=== PATIENT | female | born 1990 | race African-American/Black ===

== ENCOUNTER → 2021-02-24 | Outpatient (CLI) | payer BC ==
[~2021-02-24] MED LIST: IOHEXOL 240 MG/ML 50ML VIAL. ONE; IOHEXOL 300 MG/ML 75 ML VIAL. IV ONE
--- NOTE | 2021-02-24 13:39 | RAD ---
EXAM: Abdomen and pelvis CT with intravenous contrast. HISTORY: Left lower quadrant pain and rectal bleeding. TECHNIQUE: Computed tomographic images of the abdomen and pelvis were obtained following the administ ration of intravenous contrast. Multiplanar reformatting was performed. *One or more of the following individualized dose reduction techniques were utilized for this examina tion: 1. Automated exposure control. 2. Adjustment of the mA and/or kV according to patient size. 3. Use of iterative reconstruction technique. COMPARISON: None. FINDINGS: Evaluation of the lower thorax demonstrates basilar atelectasis and trace right greater emory n left pleural effusions.. There is no infiltrate. There is a patulous distal esophagus. There is fat ty infiltration of the liver along the falciform ligament. No suspicious hepatic lesion is seen. The gallbladder, pancreas, spleen and stomach are unremarkable. The adrenal glands are unremarkable. Ther e is a prominent bilateral renal collecting system without josey hydronephrosis. There is no appendicitis. There is no bowel obstruction. There is circumferential wall thickening and surrounding inflammatory stranding involving the colon from the splenic flexure to the rectum, the a ppearance of which favors acute colitis. There are multiple prominent pericolonic lymph nodes and mes enteric lymph nodes which may be reactive in etiology. No convincing colonic mass or rectal mass is s een. There is trace pelvic free fluid. There aren't heterogeneous masses involving the uterus, the largest of which is seen within the super ior uterine fundus containing calcifications and central areas of cystic change. This measures 15 cm in maximum dimension and the uterus measures nearly 8 cm in maximum dimension. There are degenerative changes throughout the spine. There is thoracolumbar scoliosis. There is a suspected rudimentary at T10 and T11. IMPRESSION: 1. Acute colitis/proctitis extending from the splenic flexure to the rectum and consistent with a his tory of inflammatory bowel disease. There are suspected reactive lymph nodes throughout the mesentery and in a pericolonic distribution. 2. Severely heterogeneously enlarged uterus containing multiple masses likely due to fibroids, the la rgest of which measures 8 cm. 3. Trace pleural effusions. Electronically signed by: Eleanor Wagner MD (02/24/2021 1:36 PM) [id number]
== END ==
LOC: CT 09:45
PROVIDERS: ATTEND Internal Medicine Gastroenterology
DX: K76.0 Fatty (change of) liver, not elsewhere classified (principal); N85.8 Other specified noninflammatory disorders of uterus; N85.2 Hypertrophy of uterus; R10.32 Left lower quadrant pain; R10.819 Abdominal tenderness, unspecified site; K62.5 Hemorrhage of anus and rectum; K50.90 Crohn's disease, unspecified, without complications; J98.11 Atelectasis; J90 Pleural effusion, not elsewhere classified
CPT/HCPCS: 74177; Q9967

== ENCOUNTER → 2021-02-24 | Emergency (ER) | payer BC ==
[~2021-02-24] VITALS: Ht 147.3 cm; Wt 87.7 kg
[~2021-02-24] MED LIST changes: +ACETAMINOPHEN 325 MG TABLET PO ONE; -IOHEXOL 240 MG/ML 50ML VIAL. ONE; -IOHEXOL 300 MG/ML 75 ML VIAL. IV ONE; +diphenhydrAMINE HCL 25 MG CAPSULE PO ONE
[2021-02-24 14:26] LABS: BASO % 0 % (0-3); EOS # 0.3 x10^3/uL (0.0-0.7); EOS % 3 % (0-3); HEMATOCRIT 20.9 % (36.0-47.0); LYMPH # 2.3 x10^3/uL (1.0-4.8); LYMPH % 22 % (24-48); MEAN CORPUSCULAR HEMOGLOBIN 23 pg (25-35); MEAN CORPUSCULAR HGB CONC 32 g/dL (31-37); MEAN CORPUSCULAR VOLUME 73 fL (79-100); MONO # 0.7 x10^3/uL (0.0-1.1); MONO % 7 % (0-9); NEUT # 6.9 x10^3uL (1.8-7.7); NEUT % 68 % (31-73); PLATELET COUNT 896 x10^3/uL (140-400); RED BLOOD COUNT 2.87 x10^6/uL (3.50-5.40); WHITE BLOOD COUNT 10.2 x10^3/uL (4.0-11.0)
[2021-02-24 14:28] LABS: HEMOGLOBIN 6.6 g/dL (12.0-15.5)
[2021-02-24 14:30] LABS: CALCIUM 9.1 mg/dL (8.5-10.1); CREATININE 0.8 mg/dL (0.6-1.0); GFR 103.3
[2021-02-24 14:39] LABS: ALBUMIN 3.1 g/dL (3.4-5.0); ALBUMIN/GLOBULIN RATIO 0.6 (1.0-1.7); TOTAL BILIRUBIN 0.2 mg/dL (0.2-1.0)
[2021-02-24 14:43] LABS: BILIRUBIN,URINE NEG (NEG); CLARITY,URINE CLEAR; COLOR,URINE YELLOW; GLUCOSE,URINE NEG (NEG); NITRITE,URINE NEG (NEG); UROBILINOGEN,URINE 0.2 mg/dL (0.2 mg/dL)
[2021-02-24 14:45] LABS: BACTERIA,URINE 0 /HPF (0-FEW); RBC,URINE 0 /HPF (0-2); SQUAMOUS EPITHELIAL CELL,UR OCC /LPF; WBC,URINE RARE /HPF (0-4)
--- NOTE | 2021-02-24 14:54 | RAD ---
EXAM: Pelvic sonogram. HISTORY: Uterine masses. TECHNIQUE: Transabdominal sonographic imaging of the pelvis was performed. The patient was unable to tolerate transvaginal imaging due to discomfort. COMPARISON: CT obtained on the same date. FINDINGS: There are multiple heterogeneous solid masses with internal blood flow throughout the pelvi s and extending into the abdomen, the largest of which measures approximately 10 cm. The uterus and o varies are not seen separate from these lesions. There is no pelvic free fluid. IMPRESSION: Multiple masses throughout the pelvis and extending into the abdomen, the appearance of w hich on the prior CT favors multiple uterine fibroids. No normal uterine parenchyma is seen separate from these lesions. The ovaries are obscured. Electronically signed by: Eleanor Wagner MD (02/24/2021 2:52 PM) [id number]
--- NOTE | 2021-02-24 15:24 | PHYS DOC ---
Past History Past Medical History: Bronchitis Additional Past Medical Histor: chrones (ANH LEYVA MD) Past Surgical History: No Surgical History (ANH LEYVA MD) Smoking: Non-smoker (ANH LEYVA MD) Adult General Chief Complaint Chief Complaint: ABNORMAL LABS [facility] Patient is 30-year-old female with past medical history of Crohn's who presents to the emergency room at recommendation of her primary care doctor due to a low hemoglobin. The patient states that she saw her GI specialist on and then saw her primary physician on Wednesday. She has been having increased bowel movements over the last month. She was having some blood in her stools last we ek but this is now resolved. She states the amount of blood was small. She has some fatigue but denies any shortness of breath. She denies any heavy vaginal bleeding. She states her periods have been irregular over the last couple of months. She is never seen an [employer]NA[employer]ST. She states her last CT scan was in 2014. She has been having some left lower quadrant abdominal pain intermittently for the last month. She states it feels like a fullness. She denies any weight gain. She does not feel like her abdomen is distended. She states she is having up to 10 bowel movements a day. (ANH LEYVA MD) Review of Systems Review of Systems Complete ROS is negative unless otherwise documented in [facility] (ANH LEYVA MD) Allergies Allergies Allergies Coded Allergies Type Severity Reaction Last Updated Verified No Known Drug Allergies 09/08/13 No (ANH LEYVA MD) Physical Exam Physical Exam General: Awake, alert, NAD. Well Nourished, well hydrated. Cooperative HEENT: Atraumatic, EOMI, PERRL, airway patent, moist oral mucosa Neck: Supple, trachea midline Respiratory: CTA bilaterally, normal effort, no wheezing/crackles CV: RRR, no murmur, cap refill <2 GI: Soft, distended, left lower quadrant tenderness, uterus palpable above the umbilicus MSK: No obvious deformities Skin: Warm, dry, intact Neuro: A&O x3, speech NL, sensory and motor grossly intact, no focal deficits Psych: Normal affect, normal mood, not suicidal or homicidal (ANH LEYVA MD) Current Patient Data Vital Signs Vital Signs Date Time Temp Pulse Resp B/P (MAP) Pulse Ox O2 Delivery O2 Flow Rate FiO2 02/24/21 14:26 97.7 103 20 112/67 100 Room Air Lab Results Laboratory Tests Test 02/24/21 13:47 02/24/21 14:04 02/24/21 14:20 Urine Collection Type Unknown Urine Color Yellow Urine Clarity Clear Urine pH 6.5 Urine Specific [place] 1.010 Urine Protein Neg (NEG-TRACE) Urine Glucose (UA) Neg mg/dL (NEG) Urine Ketones (Stick) Neg mg/dL (NEG) Urine Blood Neg (NEG) Urine Nitrite Neg (NEG) Urine Bilirubin Neg (NEG) Urine Urobilinogen Dipstick 0.2 mg/dL (0.2 mg/dL) Urine Leukocyte Esterase Neg (NEG) Urine RBC 0 /HPF (0-2) Urine WBC Rare /HPF (0-4) Urine Squamous Epithelial Cells Occ /LPF Urine Bacteria 0 /HPF (0-FEW) White Blood Count 10.2 x10^3/uL (4.0-11.0) Red Blood Count 2.87 x10^6/uL (3.50-5.40) L Hemoglobin 6.6 g/dL (12.0-15.5) *L Hematocrit 20.9 % (36.0-47.0) L Mean Corpuscular Volume 73 fL (79-100) L Mean Corpuscular Hemoglobin 23 pg (25-35) L Mean Corpuscular Hemoglobin Concent 32 g/dL (31-37) Red Cell Distribution Width 18.0 % (11.5-14.5) H Platelet Count 896 x10^3/uL (140-400) H Neutrophils (%) (Auto) 68 % (31-73) Lymphocytes (%) (Auto) 22 % (24-48) L Monocytes (%) (Auto) 7 % (0-9) Eosinophils (%) (Auto) 3 % (0-3) Basophils (%) (Auto) 0 % (0-3) Neutrophils # (Auto) 6.9 x10^3uL (1.8-7.7) Lymphocytes # (Auto) 2.3 x10^3/uL (1.0-4.8) Monocytes # (Auto) 0.7 x10^3/uL (0.0-1.1) Eosinophils # (Auto) 0.3 x10^3/uL (0.0-0.7) Basophils # (Auto) 0.0 x10^3/uL (0.0-0.2) Sodium Level 139 mmol/L (136-145) Potassium Level 4.0 mmol/L (3.5-5.1) Chloride Level 101 mmol/L (98-107) Carbon Dioxide Level 26 mmol/L (21-32) Anion Gap 12 (6-14) Blood Urea Nitrogen 6 mg/dL (7-20) L Creatinine 0.8 mg/dL (0.6-1.0) Estimated GFR (Cockcroft-Gault) 103.3 BUN/Creatinine Ratio 8 (6-20) Glucose Level 83 mg/dL (70-99) Calcium Level 9.1 mg/dL (8.5-10.1) Total Bilirubin 0.2 mg/dL (0.2-1.0) Aspartate Amino Transferase (AST) 13 U/L (15-37) L Alanine Aminotransferase (ALT) 18 U/L (14-59) Alkaline Phosphatase 67 U/L (46-116) Total Protein 8.0 g/dL (6.4-8.2) Albumin 3.1 g/dL (3.4-5.0) L Albumin/Globulin Ratio 0.6 (1.0-1.7) L POC Urine HCG, Qualitative hcg negative (Negative) (ANH LEYVA MD) EKG EKG [] (ANH LEYVA MD) Radiology/Procedures Radiology/Procedures [] (ANH LEYVA MD) Heart Score C/O Chest Pain: N/A Risk Factors: Risk Factors: DM, Current or recent (<one month) smoker, HTN, HLP, family history of CAD, obesity. Risk Scores: Risk Factors: DM, Current or recent (<one month) smoker, HTN, HLP, family history of CAD, obesity. (ANH LEYVA MD) Course & Med Decision Making Course & Med Decision Making Pertinent Labs and Imaging studies reviewed. (See chart for details) Patient is a 30-year-old female who presents to the emergency room after being told her hemoglobin is low. Hemoglobin today is 6.5. Patient will receive a unit of blood. CT abdomen pelvis was done this morning outpatient was read by the radiologist. Patient has several large masses which could be related to fibroids. Patient also has elevated platelets and signs of a Crohn's exacerbation. Attempted to transfer the patient to [facility] as that is where her GI specialist is located. According to [facility] they are at full capacity and unable to accept any transfers. Refusal physician is Dr. Stephan Zee. Patient will be transferred to [facility]. After patient was accepted we were informed that her insurance was not taken and [facility]. I did attempt to transfer her to a [facility] where her insurance would be taken. Patient was declined by [facility] due to not having any capacity to take care of her at this time. We will attempt to send patient to [place]. Patient was discussed with Dr. Lee who will assume care. (ANH LEYVA MD) Dragon Disclaimer Dragon Disclaimer This electronic medical record was generated, in whole or in part, using a voice recognition dictation system. (ANH LEYVA MD) Attending Co-Sign The patient was seen and interviewed as well as examined at the bedside. The chart was reviewed. The case was discussed. Agree with the plan of care. (EDWARD LEE DO) Departure Departure: Impression: Primary Impression: Severe anemia Additional Impressions: Uterine mass Crohn's disease of colon with rectal bleeding Disposition: 02 SHORT TERM HOSPITAL Condition: STABLE Referrals: CLAUDE LAUREN MD (PCP) Problem Qualifiers ANH LEYVA MD Feb 24, 2021 15:24 EDWARD LEE DO Feb 26, 2021 12:12
[2021-02-24 16:46] VITALS: BP 139/75
[2021-02-24 17:00] VITALS: BP 127/87
[2021-02-24 18:00] VITALS: BP 132/79
[2021-02-24 19:00] VITALS: BP 146/77
[2021-02-24 19:50] VITALS: BP 127/74
[2021-02-24 22:23] VITALS: BP 134/73
== END ==
LOC: ER 13:11
DX: D64.9 Anemia, unspecified (principal); N85.8 Other specified noninflammatory disorders of uterus; K50.111 Crohn's disease of large intestine with rectal bleeding
CPT/HCPCS: 36415; 36430; 76830; 76856; 80053; 81001; 81025; 83540; 83550; 85025; 86850; 86900; 86901; 86920; 99285; P9016; Q0163

== ENCOUNTER → 2021-03-17 | Outpatient (CLI) | payer BC ==
[2021-02-24 22:23] VITALS: BP 134/73
--- NOTE | 2021-03-17 14:19 | RAD ---
EXAM: Chest, 2 views. HISTORY: Short of breath. COMPARISON: None. FINDINGS: 2 views of the chest are obtained. There is no infiltrate, pleural effusion or pneumothorax . The heart is normal in size. IMPRESSION: No acute pulmonary finding. Electronically signed by: Eleanor Wagner MD (03/17/2021 2:16 PM) [id number]
== END ==
LOC: RAD 13:30
PROVIDERS: ATTEND Internal Medicine Gastroenterology
DX: Z01.812 Encounter for preprocedural laboratory examination (principal); K50.90 Crohn's disease, unspecified, without complications
CPT/HCPCS: 71046; 87340